=== PATIENT | male | born 1975 | race Caucasian/White ===

== ENCOUNTER → 2018-03-09 11:44 | Outpatient (CLI) | payer MEDICAID, SELFPAY ==
--- NOTE | 2018-03-09 11:49 | RAD_ITS ---
STUDY: X-RAY - LEFT KNEE REASON FOR EXAM: Male, 42 years old. Left knee pain TECHNIQUE: 4 view(s) of the knee. To include single weightbearing view COMPARISON: None. FINDINGS: Normal visualized distal femur. Normal visualized proximal tibia and fibula. Normal proximal tibiofibular articulation. Normal medial femorotibial compartment. Normal lateral femorotibial compartment. Normal patellofemoral articulation. The soft tissue structures are unremarkable. No significant joint space height loss RAD/Knee 4 or More Views IMPRESSION: Normal x-ray examination of the knee. Electronically Signed: Daniel Rivera DO at 13:05 EDT Tel , Service support ,
== END ==
LOC: HPRAD 11:48
PROVIDERS: Visit Provider Physician Assistant
DX: S86.912A Strain of unspecified muscle(s) and tendon(s) at lower leg level, left leg, initial encounter (principal)
CPT/HCPCS: 73564

== ENCOUNTER → 2020-06-12 09:19 | Outpatient (CLI) | payer MEDICAID, SELFPAY ==
[2018-03-09 11:31] VITALS: BMI 39.0
== END ==
PROVIDERS: PCP Nurse Practitioner Family; Referring Provider Nurse Practitioner Family; Visit Provider Nurse Practitioner Family
DX: R55 Syncope and collapse (principal); I10 Essential (primary) hypertension; E87.6 Hypokalemia; E66.01 Morbid (severe) obesity due to excess calories; Z72.0 Tobacco use
CPT/HCPCS: 93225; 93226

== ENCOUNTER → 2020-06-24 09:08 | Outpatient (CLI) | payer MEDICAID, SELFPAY ==
[2018-03-09 11:31] VITALS: BMI 39.0
--- NOTE | 2020-06-24 09:10 | ECHOD_ITS ---
Reason For Study: SYNCOPE, HTN Left Ventricle Normal LV size. Mild concentric left ventricular hypertrophy. Left ventricular systolic function is normal. The estimated ejection fraction is 60 %. No regional wall motion abnormalities noted. Right Ventricle Normal RV size. Normal systolic function. Atria Normal left atrium. Normal right atrium. Mitral Valve Normal mitral valve. Tricuspid Valve Normal tricuspid valve. Aortic Valve Normal aortic valve. Pulmonic Valve Normal pulmonic valve. Great Vessels Normal aortic root. The pulmonary artery is normal size. Normal inferior vena cava. Pericardium/Pleural No pericardial effusion. MMode/2D Measurements & Calculations LVIDd: 5.4 cm IVSd: 1.2 cm Ao root diam: 3.6 cm LVIDs: 3.6 cm LVPWd: 1.2 cm RVDd: 3.8 cm FS: 33.2 % LAV(MOD-bp): 50.1 ml LVAd ap4: 42.2 cm2 SV(MOD-sp4): 84.9 ml LAV(MOD-bp) Indexed: 21.4 ml/m2 EDV(MOD-sp4): 154.6 ml LAV(MOD-sp2): 53.7 ml EDV(sp4-el): 157.6 ml LAV(MOD-sp4): 42.9 ml LVAs ap4: 25.6 cm2 ESV(MOD-sp4): 69.7 ml ESV(sp4-el): 66.5 ml EF(MOD-sp4): 54.9 % EF(sp4-el): 57.8 % SV(sp4-el): 91.1 ml LA dimension(2D): 4.0 cm LA A4 area: 17.7 cm2 RA A4 area: 18.7 cm2 Time Measurements MV dec time: 0.22 sec Doppler Measurements & Calculations MV E max christian: 80.1 cm/sec Lat Peak E' Christian: 13.3 cm/sec Med Peak E' Christian: 10.6 cm/sec MV A max christian: 34.0 cm/sec E/E' lat: 6.0 E/E' med: 7.6 MV E/A: 2.4 Ao V2 max: 126.3 cm/sec LV V1 max: 100.2 cm/sec PA V2 max: 98.0 cm/sec Ao max P.4 mmHg LV V1 max P.0 mmHg PI end-d christian: 84.9 cm/sec Interpretation Summary Normal LV size. Left ventricular systolic function is normal. Mild concentric left ventricular hypertrophy. The estimated ejection fraction is 60 %. Ordering Physician: Maria Esther Raygoza Referring Physician: Maria Esther Raygoza Performed By: Brittany Osorio RDCS
== END ==
PROVIDERS: PCP Nurse Practitioner Family; Referring Provider Nurse Practitioner Family; Visit Provider Nurse Practitioner Family
DX: R55 Syncope and collapse (principal); I10 Essential (primary) hypertension; E66.01 Morbid (severe) obesity due to excess calories; Z72.0 Tobacco use
CPT/HCPCS: 93306